=== PATIENT | female | born 1985 | race American Indian/Alaskan Native ===

== ENCOUNTER 2020-03-07 06:56 | Emergency (ER) | payer SELFPAY ==
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
== END 2020-03-07 13:02 ==
LOC: EDBD → ED 06:56
DX: I46.9 Cardiac arrest, cause unspecified (principal)